=== PATIENT | male | born 2000 | race Two or more races ===

== ENCOUNTER 2021-09-16 12:17 | Emergency (ER) | payer SELFPAY ==
[2021-09-16 12:29] VITALS: BP 125/82; PULSE 150; RESP 18; TEMP 36.8; O2SAT 98; BMI 19.3
--- NOTE | 2021-09-16 12:46 | XR_ITS ---
WS: [id number] XR shoulder LT min 2V* [id number] REASON FOR EXAM: pain FINDINGS: No fracture or focal bone lesion. Normal joint space and alignment of the acromioclavicular joint. Glenohumeral joint is intact and well preserved. Normal glenohumeral articulation. No soft tissue abnormality XR/XR shoulder LT min 2V* [id number] IMPRESSION: No acute abnormality.
--- NOTE | 2021-09-16 12:46 | ECG_ITS ---
[facility] Test Date: 2021-09-16 Pat Name: Arvind Frost Department: Room: Gender: Male Chicken Cutter: : 2000 Requested By: Micaela Vasquez Order Number: [id number] Anaid MD: Deven Sterling M.D. Measurements Intervals Bronson Rate: 121 P: 76 AK: 140 QRS: 75 QRSD: 93 T: 52 QT: 277 QTc: 394 Interpretive Statements SINUS TACHYCARDIA No previous ECG available for comparison Electronically Signed On 09-16-2021 18:34:21 DEDICATED TRUCK DRIVER by Deven Setrling M.D. [id number]
--- NOTE | 2021-09-16 12:46 | XR_ITS ---
WS: [id number] XR chest 1V portable [id number] REASON FOR EXAM: tachycardia FINDINGS: The heart and mediastinum are within normal limits. Calcified granulomatous disease in both hemithoraces. No active pulmonary parenchymal or pleural disease. The bony thorax is intact. XR/XR chest 1V portable [id number] IMPRESSION: No acute chest abnormality.
--- NOTE | 2021-09-16 12:46 | ED_ITS ---
HPI - Extremity Problem General: Chief complaint: Extremity Injury, Upper Stated complaint: Shoulder pain Time Seen by Provider: 09/16/21 12:45 Source: patient Mode of arrival: ambulatory Limitations: no limitations History of Present Illness: Patient is a 20-year-old male who presents to ED today along with his mother for concerns of left shoulder pain. Patient states he was in the car prior to arrival and was stretching when he immediately felt something pull in his left shoulder and has had quite a bit of tenderness since that time. Patient admittedly is very anxious upon arrival. Heart rate in the 150s. He denies numbness, tingling, loss of sensation to the arm. He has not noticed any swelling or color/temperature changes. He denies chest pain or shortness of breath. MD Complaint: joint pain Onset (ago): hour(s) Pain Consistency: constant Location: left and upper extremity Radiation: none Relieving factors: immobilization Exacerbating factors: range of motion Associated symptoms: Reports no associated symptoms; Deny chest pain or fever(s) Review of Systems Const: Denies: fever(s), chills or body aches Card: Denies: chest pain, palpitations, irregular heart rhythm, edema, swelling of feet/ankles, lightheadedness, syncope, pre-syncope, dyspnea on exertion, orthopnea or leg pain with exertion Resp: Denies: dyspnea, pain on inspiration or hemoptysis GI: Denies: nausea or vomiting Musc: Reports: joint pain (L shoulder); Denies: neck pain, back pain, extremity pain, extremity swelling or joint swelling Neuro: Denies: headache(s), numbness in extremities, weakness in extremities or sensory changes Physical Exam Const: COMMON NORMALS: average body habitus, patient oriented x3, no limitations, healthy appearing, alert and well nourished GENERAL APPEARANCE: cooperative and anxious ORIENTATION/CONSCIOUSNESS: Yes awake, Yes oriented to person, Yes oriented to place and Yes oriented to time HENMT: COMMON NORMALS: normocephalic and atraumatic HEAD & SCALP: normal to inspection, normocephalic and atraumatic Neck/C-Spine: COMMON NORMALS: full ROM CERVICAL SPINE: Yes cervical ROM normal, No pain with cervical ROM, No Cervical spine tenderness and No Paracervical muscle tenderness Chest: COMMONS NORMALS: normal inspection of the chest and normal palpation of entire chest wall Resp: COMMON NORMALS: normal respiratory effort and clear to auscultation bilaterally AUSCULTATION: clear to auscultation bilaterally Cardio: COMMON NORMALS: regular rhythm RATE: tachycardic RHYTHM: regular rhythm Back/Pelvis: COMMON NORMALS: thoracic and lumbar spine normal to inspection, no thoracic nor lumbar tenderness and thoraco-lumbar ROM normal Extremity: COMMON NORMALS: normal to inspection GENERAL: Yes normal exam except as noted LEFT UPPER EXTREMITY: Yes shoulder joint (TTP near AC joint/acromion) Left shoulder joint: Yes ROM (pain directly reproduced with palpation and ROM) and Yes neurovascular exam (normal) Neuro: COMMON NORMALS: patient oriented x3, moves all extremities, no focal motor deficits and no sensory deficits noted SENSORIUM/ORIENTATION: Yes alert, Yes oriented to person, Yes oriented to place and Yes oriented to time Skin: COMMON NORMALS: no rashes or lesions noted GENERAL SKIN EXAM: no rashes or lesions noted Course Vital Signs: Vital signs: Vital Signs Temperature 98.3 F 09/16/21 12:29 Pulse Rate 150 H 09/16/21 12:29 Respiratory Rate 18 09/16/21 12:29 Blood Pressure 125/82 09/16/21 12:29 Pulse Oximetry 98 09/16/21 12:29 MDM - Extremity (Nontraumatic) Medical Decision Making Patient very anxious upon arrival with a heart rate in the 150s. By the time EKG was completed heart rate down in the 120s. Patient was offered IM Toradol for his discomfort but declined. He did take PO and states this did help with his anxiety. During reevaluation his heart rate is now 115. Patient's pain is directly reproduced by palpation of the shoulder joint and by range of motion mainly with flexion and abduction. He does not complain of chest pain, shortness of breath, difficulty breathing. There is no swelling, color/temperature changes to the extremity. He has normal distal radial pulses with brisk cap refill. He does not complain of numbness, tingling, loss of sensation to the extremity. At this time recommend conservative management and we will have case management set him up with a PCP for further evaluation if symptoms persist. Strict return to ED precautions verbally given to patient and mother who agree with current plan. Lab Data Radiology Impressions Chest X-Ray 09/16/21 12:46 IMPRESSION: No acute chest abnormality. Shoulder X-Ray 09/16/21 12:46 IMPRESSION: No acute abnormality. Discharge Plan Discharge Patient Disposition: Home Clinical Impression: Left shoulder strain Qualifiers: Encounter type: initial encounter Qualified Code(s): S46.912A - Strain of unspecified muscle, fascia and tendon at shoulder and upper arm level, left arm, initial encounter Condition: Stable Discharge Orders: Discharge ED (Routine); Ordered 09/16/21 Ordered By: Micaela Vasquez Coding Level of Care Code ED Transmission Technician for Simba Hoang
[2021-09-16] MEDS: LORazepam 1 mg Tablet PO (13:42)
--- NOTE | 2021-09-17 13:20 | DCPLANNER ---
manager emergency had message to speak with patient about getting established with a primary care physician. manager emergency called phone number [phone]. manager emergency was unable to speak with patient at this time, a voicemail was left for patient to return case filler phone call.
== END 2021-09-16 14:40 | disposition home or self-care (01) ==
PROVIDERS: Emergency Provider Physician Assistant
DX: S46.912A Strain of unspecified muscle, fascia and tendon at shoulder and upper arm level, left arm, initial encounter (principal); X50.9XXA Other and unspecified overexertion or strenuous movements or postures, initial encounter
CPT/HCPCS: 71045; 73030; 93005; 99283

== ENCOUNTER 2021-12-28 15:02 | Emergency (ER) | payer SELFPAY ==
[2021-12-28 15:03] VITALS: TEMP 36.4; BMI 19.2
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
[2021-12-28 15:26] VITALS: BP 117/74; PULSE 81; RESP 16; O2SAT 95
[2021-12-28] MEDS: tetanus-dipt-pertussis 0.5 mL SDV IM (15:30)
[2021-12-28 15:32] LABS: Hematocrit 43.7 % (42.0-52.0); Hemoglobin 14.8 g/dL (11.7-16.6); Mean Corpuscular HGB Conc 33.9 g/dL (30.0-36.0); Mean Corpuscular Volume 91.6 fl (80-94); Mean Platelet Volume 12.9 fL (7.4-10.4); Platelet Count 182 10^3/cmm (130-400); Red Blood Count 4.77 10^6/uL (4.1-5.3); Red Cell Distribution Width 11.9 % (12.1-15.1); White Blood Count 9.4 10^3/uL (4.0-10.0)
[2021-12-28] MEDS: morphine 4 mg/mL SDV 1 mL IVP ×2 (15:32→16:01)
[2021-12-28] MEDS: ceFAZolin 1,000 MG in sodium chloride 0.9% (plus) 50 ML 100 MG IV (15:33)
[2021-12-28 15:55] LABS: Blood Urea Nitrogen 14 mg/dL (6-20); Calcium 8.6 mg/dL (8.5-10.5); Carbon Dioxide 23 mmol/L (22-29); Chloride 102 mmol/L (98-107); Glucose 88 mg/dL (65-115); Osmolality Calculated 294 mOsm/kg (285-295); Slide Review Slide Review Perform; Sodium 142 mmol/L (136-145)
[2021-12-28 15:56] LABS: Absolute Neutrophil 3.9 10^3/cmm (1.4-6.5); Absolute Segmented Neutrophil 3.9 10/cmm (1.6-7.1); Band Neutrophils Absolute 0.1 10^3/cmm (0.0-1.2); Eosinophils 0 %; Lymphocytes 43 %; Lymphocytes Absolute 5.2 10^3/cmm (1.2-3.4); Monocytes Absolute 0.3 10^3/cmm (0.1-0.6); Platelet Estimate Normal (Normal); Segmented Neutrophils 41 %; Total Cells Counted 100 (0-100)
[2021-12-28] MEDS: mupirocin oint 22 gm 1 APPLIC TOPICAL (16:01)
[2021-12-28 16:15] LABS: Anion Gap 19.8 (5-19)
[2021-12-28 16:17] LABS: Potassium 2.8 mmol/L (3.5-5.1)
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
== END 2021-12-28 16:13 | disposition home or self-care (01) ==
PROVIDERS: Emergency Provider Family Medicine
DX: S61.432A Puncture wound without foreign body of left hand, initial encounter (principal); W34.00XA Accidental discharge from unspecified firearms or gun, initial encounter
CPT/HCPCS: 12004; 73130; 80048; 85007; 85025; 90471; 90715; 96365; 96375; 96376; 99284; 99291; J0690; J2270